=== PATIENT | male | born 1995 | race Caucasian/White ===

== ENCOUNTER 2018-11-29 21:05 | Emergency (ER) | payer MEDICAID ==
[~2018-11-29] VITALS: Ht 177.8 cm; Wt 68.0 kg
[2018-11-29 21:05] VITALS: BP 113/81
--- NOTE | 2018-11-29 21:11 | NUR ---
EKG PERFORMED AT BEDSIDE
--- NOTE | 2018-11-29 21:18 | NUR ---
23 Y/O M PRESENTE TO ED WITH C/O CHEST PAIN, SUDDEN ONSET. PAIN OCCURRED 40 MINUTES PRIOR TO ARRIVAL TO ED. 8/10 PAIN, LOCATED AT [facility]. PAIN DOESNT RADIATE. HR 70, BP 119/76. +SOB. BILATERAL LUNG DEGROOT CLEAR. O2 SATURATION AT 99% ON ROOM AIR. PT STATED "I JUST STOPPED SMOKING MARIJUANA 7 DAYS AGO. I'VE BEEN TRYING TO DETOX." C/O SWEATING. ERMD NOTIFIED. FAMILY AT [facility]. WILL CONTINUE TO MONITOR.
[2018-11-29] MEDS ORDERED: ALPRAZolam 0.5 MG TAB PO ONE (21:25)
--- NOTE | 2018-11-29 21:28 | NUR ---
X-Ray at bedside.
--- NOTE | 2018-11-29 22:16 | NUR ---
Patient discharged with v/s stable. Written and verbal after care instructions given and explained. Patient alert, oriented and verbalized understanding of instructions. Ambulatory with steady gait. All questions addressed prior to discharge. ID band removed. Patient advised to follow up with PMD. Rx of Zofran and Prilosec given. Patient educated on indication of medication including possible reaction and side effects. Opportunity to ask questions provided and answered.
[2018-11-29 22:17] VITALS: BP 110/70
== END 2018-11-29 22:16 | disposition home or self-care (01) ==
LOC: MED 21:05
DX: F41.9 Anxiety disorder, unspecified (principal); F12.23 Cannabis dependence with withdrawal; K21.9 Gastro-esophageal reflux disease without esophagitis
CPT/HCPCS: 71045; 93005; 99283; Q0092

== ENCOUNTER 2018-12-04 16:46 | Emergency (ER) | payer MEDICAID ==
[~2018-12-04] VITALS: Ht 177.8 cm; Wt 64.2 kg
[2018-12-04 16:50] VITALS: BP 110/89
--- NOTE | 2018-12-04 16:55 | NUR ---
PT AMBULATED TO ER BED 02
--- NOTE | 2018-12-04 17:02 | NUR ---
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 PT SEEN AT CLINIC TODAY. STATES THEY SENT HIM HERE. PT ADMITS TO USING MARIJUANA BUT STOPPED A WEEK AGO. ABDOMEN NON-TENDER TO TOUCH. BOWEL SOUND ACTIVE IN ALL 4 QUADRANTS, ABDOMEN SOFT AND FLAT. VSS AT THIS TIME. C/O OF ABDOMEN PAIN 08/15. LAST BM TODAY STRAINED. PT AA0X4. BED IS DOWN, LOCKED, BED RAIL X 1, ERMD TO SEE PT. MED HX: NONE
--- NOTE | 2018-12-04 17:20 | NUR ---
DR HAMLIN AT BEDSIDE
[2018-12-04] MEDS ORDERED: FAMOTIDINE 20 MG TAB PO ONE (17:25)
[2018-12-04] MEDS ORDERED: ALUMINUM HYD/MAG/SIMETHICONE 30 ML UDC PO ONE (17:25)
[2018-12-04] MEDS ORDERED: LIDOCAINE VISCOUS 2% 20 ML UDC PO ONE (17:25)
--- NOTE | 2018-12-04 17:38 | NUR ---
PT UNABLE TO GIVE URINE AT THIS TIME. PT PROVIDED WITH WATER CUP
[2018-12-04 18:00] LABS: BASOPHILS % (AUTO) 0.4 % (0.0-2.0); EOSINOPHILS # (AUTO) 0.2 K/uL (0-0.4); EOSINOPHILS % (AUTO) 2.4 % (0.0-4.0); LYMPHOCYTES # (AUTO) 1.5 K/uL (2.0-11.5); LYMPHOCYTES % (AUTO) 17.6 % (20.5-51.1); MEAN CORPUSCULAR HEMOGLOBIN 31 pg (27-31); MEAN CORPUSCULAR HGB CONC 35 g/dL (33-37); MONOCYTES # (AUTO) 0.6 K/uL (0.8-1.0); MONOCYTES % (AUTO) 7.6 % (1.7-9.3); PLATELET COUNT (AUTO) 207 K/uL (140-450); RED BLOOD CELL COUNT(AUTO) 5.17 MIL/uL (4.20-6.10); RED CELL DISTRIBUTION WIDTH 12.9 % (11.6-13.7); WHITE BLOOD COUNT (AUTO) 8.4 K/uL (4.8-10.8)
--- NOTE | 2018-12-04 18:15 | NUR ---
URINE COLLECTED AND CALLED LAB FOR PICKUP
--- NOTE | 2018-12-04 18:27 | NUR ---
PT AA0X4. PT GIVEN BLANKET FOR COMFORT. GIRL FRIEND BEDSIDE.
[2018-12-04 18:29] LABS: ANION GAP 13.8 (8-16); CARBON DIOXIDE 29.1 mmol/L (21-32); CREATININE 1.1 mg/dL (0.7-1.3); POTASSIUM 3.9 mmol/L (3.5-5.1)
[2018-12-04 18:34] LABS: ALBUMIN 4.5 g/dL (3.4-5.0); TOTAL BILIRUBIN 0.6 mg/dL (0.0-1.0)
[2018-12-04 18:39] LABS: APPEARANCE,URINE CLEAR (CLEAR); BILIRUBIN,URINE NEGATIVE (NEGATIVE); BLOOD, URINE NEGATIVE (NEGATIVE); COLOR,URINE YELLOW (YELLOW); LEUKOCYTE ESTERASE ,URINE NEGATIVE (NEGATIVE); NITRITE, URINE NEGATIVE (NEGATIVE); PH,URINE 6.5 (5.0-9.0); UGLUCOSE NEGATIVE (NEGATIVE)
[2018-12-04 19:04] VITALS: BP 111/62
--- NOTE | 2018-12-04 19:04 | NUR ---
Patient discharged with v/s stable. Written and verbal after care instructions given and explained. Patient verbalized understanding. Ambulatory with steady gait. All questions addressed prior to discharge. Advised to follow up with PMD. PAIN 07/18.
== END 2018-12-04 19:04 | disposition home or self-care (01) ==
LOC: MED 16:46
DX: K29.70 Gastritis, unspecified, without bleeding (principal); F12.10 Cannabis abuse, uncomplicated; Z90.49 Acquired absence of other specified parts of digestive tract
CPT/HCPCS: 36415; 80053; 81003; 83690; 85025; 99284

== ENCOUNTER 2018-12-06 11:47 | Emergency (ER) | payer MEDICAID ==
[~2018-12-06] VITALS: Ht 177.8 cm; Wt 63.7 kg
[2018-12-06 11:49] VITALS: BP 121/76
[2018-12-06] MEDS ORDERED: NACL 0.9% 1,000 ML IV SCH (11:58)
[2018-12-06] MEDS ORDERED: KETOROLAC 15 MG/ML VIAL IVP ONE (12:00)
--- NOTE | 2018-12-06 12:01 | NUR ---
BIB GIRLFRIEND. AAO X4 C/O RT FLANK PAIN X2 DAYS. PT REPORTS CONSTANT NON-RADIATING THROBING/SHARP PAIN AT 8/10. PT DENIES TRAUMA. NO N/V/D, FEVER, OR PAINFUL URINATION. LAST BM YESTERDAY. ABDOMEN NON TENDER TO TOUCH. STEADY GAIT. HOB UP. BED SIDE RAILS UPX1. ON LOW BED POSITION, ER TO EVALUATE PT.
[2018-12-06 12:22] LABS: BASOPHILS % (AUTO) 0.3 % (0.0-2.0); EOSINOPHILS # (AUTO) 0.2 K/uL (0-0.4); EOSINOPHILS % (AUTO) 3.7 % (0.0-4.0); HEMATOCRIT 44.9 % (36-52); HEMOGLOBIN 15.5 g/dL (12.0-18.0); LYMPHOCYTES # (AUTO) 1.3 K/uL (2.0-11.5); LYMPHOCYTES % (AUTO) 27.4 % (20.5-51.1); MEAN CORPUSCULAR HEMOGLOBIN 31 pg (27-31); MEAN CORPUSCULAR HGB CONC 35 g/dL (33-37); MEAN CORPUSCULAR VOLUME 88.8 fL (80-94); MONOCYTES # (AUTO) 0.5 K/uL (0.8-1.0); MONOCYTES % (AUTO) 10.2 % (1.7-9.3); NEUTROPHILS # (AUTO) 2.8 K/uL (1.8-7.7); NEUTROPHILS % (AUTO) 58.4 % (42.2-75.2); PLATELET COUNT (AUTO) 188 K/uL (140-450); RED BLOOD CELL COUNT(AUTO) 5.06 MIL/uL (4.20-6.10); RED CELL DISTRIBUTION WIDTH 12.7 % (11.6-13.7); WHITE BLOOD COUNT (AUTO) 4.8 K/uL (4.8-10.8)
[2018-12-06 12:34] LABS: ANION GAP 11.6 (8-16); CARBON DIOXIDE 28.2 mmol/L (21-32); CREATININE 1.1 mg/dL (0.7-1.3); POTASSIUM 3.8 mmol/L (3.5-5.1)
--- NOTE | 2018-12-06 12:34 | NUR ---
returned from ct via wc
[2018-12-06 12:45] LABS: ALBUMIN 4.2 g/dL (3.4-5.0); TOTAL BILIRUBIN 0.9 mg/dL (0.0-1.0)
[2018-12-06 13:12] LABS: APPEARANCE,URINE CLEAR (CLEAR); BILIRUBIN,URINE NEGATIVE (NEGATIVE); BLOOD, URINE NEGATIVE (NEGATIVE); COLOR,URINE YELLOW (YELLOW); LEUKOCYTE ESTERASE ,URINE NEGATIVE (NEGATIVE); NITRITE, URINE NEGATIVE (NEGATIVE); UGLUCOSE NEGATIVE (NEGATIVE)
[2018-12-06 13:29] LABS: RBC,URINE 0-5 /HPF (0-5); WBC,URINE 0-5 /HPF (0-5)
[2018-12-06] MEDS ORDERED: MORPHINE SULFATE 4 MG/ML SYR IVP ONE (13:30)
[2018-12-06 14:22] VITALS: BP 105/62
== END 2018-12-06 14:22 | disposition home or self-care (01) ==
LOC: MED 11:47
DX: R10.9 Unspecified abdominal pain (principal); R05 Cough; Z90.49 Acquired absence of other specified parts of digestive tract
CPT/HCPCS: 36415; 74176; 80053; 81001; 83690; 85025; 96374; 96375; 99284; J1885; J2270; J7030

== ENCOUNTER 2019-06-03 17:29 | Emergency (ER) | payer MEDICAID, OTHER ==
[~2019-06-03] VITALS: Ht 177.8 cm; Wt 70.8 kg
[2019-06-03 17:40] VITALS: BP 109/63
--- NOTE | 2019-06-03 17:43 | NUR ---
TO LOBBY A/E BED AMBULATORY
--- NOTE | 2019-06-03 19:46 | NUR ---
PT AMBULATED TO ER BED 08
--- NOTE | 2019-06-03 19:46 | NUR ---
24 Y/O MALE C/O DOG BITE AN HOUR AGO ON HIS RT FOREARM, TETANUS VACCINE UTD. PT. RATES PAIN OF 6/10 PAIN. PER PATIENT, " I WAS TRYING TO PREVENT MY DOG FROM BEING BITTEN BY ANOTHER DOG". DENIES N/V/D. SWOLLEN RIGHT FOREARM; NO ACTIVE BLEEDING AT THIS TIME. NO DRAINAGE. ERMD MADE AWARE OF STATUS SIDE RAILSX1. PMH: DENIES RX:DENIES NKDA
[2019-06-03 21:38] VITALS: BP 109/63
--- NOTE | 2019-06-03 21:38 | NUR ---
Patient discharged with v/s stable. Written and verbal after care instructions given and explained. Patient alert, oriented and verbalized understanding of instructions. Ambulatory with steady gait. All questions addressed prior to discharge. ID band removed. Patient advised to follow up with PMD. Rx of MOTRIN 800MG; AUGMENTIN 500MG given. Patient educated on indication of medication including possible reaction and side effects. Opportunity to ask questions provided and answered.
== END 2019-06-03 21:38 | disposition home or self-care (01) ==
LOC: MED 17:29
DX: S51.851A Open bite of right forearm, initial encounter (principal); W54.0XXA Bitten by dog, initial encounter; Y93.89 Activity, other specified; Y92.89 Other specified places as the place of occurrence of the external cause; Y99.8 Other external cause status
CPT/HCPCS: 73090; 99283